=== PATIENT | female | born 1955 | race Caucasian/White ===

== ENCOUNTER 2018-03-12 06:18 | Inpatient (IN) | payer OTHER, SELFPAY ==
[2018-02-24 13:37] VITALS: BMI 39.0
[2018-03-12] VITALS (15 sets, daily range): BP systolic 94–141; BP diastolic 54–82; PULSE 55–76; RESP 10–18; TEMP 36.3–36.7; O2SAT 94–100; BMI 40.4; BMI 39.0
--- NOTE | 2018-03-12 06:00 | DI.RAD.S_ITS ---
PROCEDURE: XR KNEE RT 1TO2V INDICATIONS: prosthesis placement RIGHT KNEE TECHNIQUE: 2 view(s) of the knee acquired. [facility], [facility] KNEE ARTHRITIC SERIES RT, 02/26/2018, 15:46. [facility], [facility], XR KNEE ARTHRITIC SERIES RT, 12/26/2017, 7:10. [facility], [facility], XR KNEE ARTHRITIC SERIES RT, 09/12/2017, 7:11. FINDINGS: Bones: Patient is status post knee joint arthroplasty. Hardware components are in expected positions. Visualized bony structures are intact. Soft tissues: Overlying postoperative changes are noted. IMPRESSION: Normal postoperative alignment after right total knee arthroplasty. Dictated by: Douglas Lee M.D. on 03/12/2018 at 11:49 Approved by: Douglas Lee M.D. on 03/12/2018 at 11:49
[2018-03-12] MEDS: LACTATED RINGERS 1,000 ML 42 ML IV ×2 (06:55→13:11)
[2018-03-12] MEDS: CELECOXIB 200 MG CAPSULE PO (07:02)
[2018-03-12] MEDS: ACETAMINOPHEN 325 MG TABLET 975 MG PO ×3 (07:05→20:17)
[2018-03-12] MEDS: PREGABALIN 75 MG CAPSULE PO (07:05)
--- NOTE | 2018-03-12 07:33 | PM.PREOP ---
Pre-operative Note Interval Note Pre-op Check: Yes History & Physical Reviewed by Physician and Yes Exam Performed Changes: No
[2018-03-12] MEDS: SCOPOLAMINE 1 PATCH TOP (07:34)
[2018-03-12] MEDS: APREPITANT 40 MG CAPSULE PO (07:43)
[2018-03-12] MEDS: CEFAZOLIN 2 GM/100 ML FROZ.PIGGY IV (07:53)
--- NOTE | 2018-03-12 08:14 | P.OP_ITS ---
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 She has had progressive symptoms over the last year. X-rays in August 2017 showed loosening of her tibial component and potential loosening of the femoral component. She could not consider surgery at that time and wanted to delay treatment until now. Recent x-rays have shown mild progression of the displacement. Laboratory analysis for revealed a slightly elevated sed rate but was otherwise normal. There was no knee effusion for aspiration. The nature of the procedure including the risks and benefits, alternatives, postoperative course and expected outcome were discussed and all questions answered. Consent was obtained. Operative site confirmed and marked. Surgeon: Hipolito Simons Blow Mold Operator: Adalid Beasley Anesthesia Type: General, Spinal and Local Operative Notes Findings: There is small amount of clear yellow fluid in the knee. This was sent to the lab and had 2000 cells of which only 12% were polys. There are no other indications of infection. The tibial component was grossly loose. The femoral component was not obviously loose. Closure Type: primary Specimen(s): none sent Implants & Drains: [employer] legion revision 5 femur with 13 mm x 160 mm stem and 6 mm posterior offset and 5 mm posterior augment. Five tibia with 14 mm x 160 mm stem, 10 mm tibial wedge and 4 mm medial offset. 9 mm posterior stabilized polyethylene tray Applied: drain(s) and implant(s) Estimated Blood Loss (mL): 100 Procedure in detail: The patient was taken the operative suite and placed under general and spinal anesthesia. 1 g of vancomycin was given prior to surgery. The leg was prepped and draped in usual sterile fashion and the tourniquet raised to 300 torr. The previous anterior incision was utilized. Electrocautery was used to dissect through subcutaneous tissue. Medial patellar arthrotomy was made. Extensor mechanism was marked for repair. The knee was aspirated and about 15 cc of clear yellow fluid was obtained and sent to the lab. The results showed 2000 nucleated cells of which only 15% were polys. This was also sent for culture. Initial medial lateral exposure was performed. The tibia was obviously displaced and with a little loosening was seen to be grossly loose. The femoral component was not obviously loose. Osteotomes were used to remove both of the femoral and tibial components. These were removed with very little bone loss. The bone quality of the tibia was still quite good with excellent peripheral bone except for a small defect medially. The tibial canal was reamed in the provisional calvin placed. A tibial cut was made removing the most minimal amount of bone from the posterior aspect. This was sized for the tibial plate which needed to be medial lysed 4 mm. The proximal tibia was prepared and the provisional stem place. Attention was then turned towards the femur. Again there was very little bone loss. A guide calvin was placed in provisional Reamer use. Sequential reaming was then performed until stable. The distal femoral cut just needed to be fresh and up a couple of mm. This was cut in 6? of valgus. The knee was measured to a size 5. The 5 cutting block was placed and cuts made. A 5 mm posterior augment was needed laterally. Trial components were then placed. The patient good overall stability with a 10 mm wedge and 9 mm posterior constrained polyp. There was still some slight increased lateral compared to medial laxity. The 11 mm insert was definitely too tight. Trial components were removed. The knee was injected with the Exparel and Marcaine solution. The knee was cleansed with Pulsavac irrigation with a total of 6 L. The knee was also soaked in a dilute Betadine solution. The final components were then cemented into place with high viscosity vacuum mixed antibiotics with gentamicin. The knee was held in extension until the cement had fully cured. Trial reduction was then performed and again the 9 mm posteriorly constrained implant was selected. The final poly tray was placed. A Hemovac drain was placed deep. The extensor mechanism was then closed with interrupted 1. Vicryl sutures. Subcutaneous tissue closed with 0 Vicryl. The skin was closed with chandu. A varinder dressing was applied. The patient tolerated procedure well and was returned to recovery room in good condition. Complications: none Condition: stable Disposition: PACU Plan for aftercare: Weight bearing as tolerated. The drain will be left in for 48 hr. Will continue vancomycin until cultures are negative.
--- NOTE | 2018-03-12 08:48 | SUR.OPER ---
Supine on padded OR bed. Pillow under head, arms secured on padded armboards <90 degree abduction. Safety belt across torso. Non-operative leg secured with tape over blanket over lower leg. Operative leg secured in DeMayo/Tom positioner. Foam padded brace at thigh of operative leg.
[2018-03-12] MEDS: BUPIVACAINE 0.25% W/ EPI VIAL 50 ML INJ (09:22)
[2018-03-12] MEDS: BUPIVACAINE LIPOSOME 266 MG/20 ML VIAL INJ (09:23)
[2018-03-12] MEDS: POVIDONE-IODINE 15 ML, SODIUM CHLORIDE 0.9% 250 ML TOP (09:24)
[2018-03-12] MEDS: TRANEXAMIC ACID 1,000 MG VIAL 1000 MG INJ ×2 (09:27→09:28)
[2018-03-12 09:57] LABS: Body Fluid Appearance SLIGHTLY CLOUDY; Body Fluid Clotted? NO CLOTS PRESENT; Body Fluid Color YELLOW
[2018-03-12 09:58] LABS: Body Fluid Red Blood Cells 992 /uL; Body Fluid Tot Nucleated Cells 2168 /uL; Eosinophils Body Fluid 2 %; Mononuclear WBC Body Fluid 86 %; Other Cells Body Fluid 0 %; Polynuclear WBC Body Fluid 12 %
[2018-03-12] MEDS: ONDANSETRON 4 MG/2 ML INJ IV ×2 (11:14→17:09)
[2018-03-12] MEDS: METOCLOPRAMIDE 10 MG/2 ML INJ IV (11:36)
--- NOTE | 2018-03-12 14:01 | CM.DANOTE ---
Discharge Planning/Care Management DCP: assessment: case received, EMR reviewed and went to room to check in with pt. She is noted to still be in surgery. WB is updated. Pt is a 62 year old female who admitted early this morning for a scheduled R TKA revision. (R TKA was done here in 2016). Payer: [facility] P: will see pt during her stay to assist with d/c issues and options as these are identified. Anticipate PT will be working with pt. CM Discharge Assessment Start: 03/12/18 13:57 Freq: Status: Active Protocol: Document 03/12/18 13:58 ITV (Rec: 03/12/18 14:01 ITV [id number]) Discharge Planning Assessment Prior Living Arrangements Mobile home Household Members spouse Whiteboard Updated in Patient Room with Yes name and ext. # of Dry Drug Worker Review Status In Process Next Review Type Continued Stay Review Pre-Anesthesia Assessment Start: 02/24/18 13:37 Freq: Status: Active Protocol: Document 02/24/18 13:37 CAB (Rec: 02/24/18 14:29 CAB [id number]) Pre-Anesthesia Assessment Patient Information Reviewed Via Phone Assessment Assessment Completed With Patient Lab Results CBC EKG Electrolytes Other Comment A1c Primary Care Provider Jo Ann Aquino Seen Specialist in Last 12 Months Yes Specialist Seen Orthopedist Comment PCP note 02/18/18 to [facility] recs to be scanned to chart Primary Language Cypriot Client Specialist Required No Height 172.72 cm Weight 116.573 kg Body Mass Index (BMI) 39.0 Hearing Ability Normal Visual Assist Glasses Dentition Type Teeth, Natural Present Barriers to Learning None Other Aids No Hx Anesthesia Reactions No: *Pt requests a spinal, nausea with general* Hx Family Anesthesia Reaction No Hx Malignant Hyperthermia No Hx Blood Transfusions No Anesthesia Review Requested No Script Worker No alcohol intake current alcohol intake frequency a few times a month Smoking Status Former smoker how long ago did patient quit smoking Quit age 32's Substance Use Type does not use Pain Present Pain Reported Musculoskeletal Symptoms Abnormal Gait Difficulty Walking Joint Pain History of Falling (Recent or History of No ) Patient is completely paralyzed or No completely immobile Prosthesis or Orthotic Device Cane Comment Impaired balance, instability to knee Is patient on oxygen? No Does patient have SNOWDEN/SOB No Hx Sleep Apnea No Suspected Sleep Apnea No Currently Taking a Beta Jacquelyn No Can You Climb a Flight of Stairs Without Yes SOB Hx Chest Pain No Hx SOB No Hx Syncope or Dizziness No Anti-Coagulant Therapy No Has a Universal Worker Assisted Living No Cardiac Testing No Hx Pacemaker/ICD No Pacemaker Rep Required? No Cardiac Clearance Received Not Applicable Diet Type At Home Regular dysphagia No Bladder Pattern Frequency Nocturia Urgency Urinary Catheter Present No Hx Urinary Self Catheterization No Diabetes Yes: Diet controlled, lost 68lbs HgbA1C 5.8 Date 02/17/18 Patient No Lactating No Hx Drug Resistant Organism No Presence of External or Internal Medical Yes Devices Comment Right knee prosthesis, partial left knee Have you traveled outside the [facility] in the last 30 days? Marital Status Lives With spouse Prior Living Arrangements Mobile home Number of Floors (Floors) One Floor Number of Stairs To Enter/Railing? ramp to entry Support System Family Friend(s) Spouse Does the Patient Have Assistance After Yes Surgery Patient Discharge Plan Description Return Home Comment Pt not advised on length of stay per surgeon's office Feels Safe in Current Environment Yes Been Physically Hurt or Threatened By a No Person in Current Environment Do you have thoughts of harming yourself None or others? Are you currently considering suicide? No Do you have a plan to hurt yourself or No Plan others? Do You Have Any Spiritual Beliefs That No May Affect Your HC Choices? Do You Have Any Cultural Practices That No May Affect Your HC Choices? Spiritual Referral None Comment Debra Who Can We Speak to About Patient's Care Family, friends Identifying Code for Release of Patient Declines to issue Information Health Care Proxy/Next of Kin Smith () Health Care Proxy Emergency Contact Name Smith () Emergency Contact Advance Directives? No: Declines further information Power of Sledger No PAC Instructions Do not shave/clip surgical site Durable medical equipment Medications to take/avoid Nasal antibiotic No ETOH/petroleum product on skin DOS NPO Post-op transportation Pre-surgical wash Sensory aids Sturdy shoes/comfortable clothes Do not bring valuables and remove jewelry
--- NOTE | 2018-03-12 14:25 | PC.NURSE ---
Addendum entered by Cori Menezes R.N. 03/12/18 16:11: UNclamped Hemovac after 2 hours, 30mls out by end of shift. Original Note: Addendum entered by Cori Menezes R.N. 03/12/18 14:29: Unable to complete admission, as Pt remains drowsy, and is alone in room. Please come back, I will answer in a few min, on recheck, Pt is resting with even unlabored respirations. Will have on coming RN complete admit. Original Note: Admission Pt arrived from PACU in bed and is drowsy, c/o nausea. Has had many antiemetics in PACU. Please can I sleep a little, I feel like that might help Brief review of POC and stay in hospital, Pt agreeable. Spouse at bedside for a short stay, No c/o pain at present. Pulse ox in place, as duramorph done in OR. 2L, and + STOP band. BROWN in place and working. Hemovac compressed and clamped, unclamped per Report, at 1315. Sang. drainage noted. Ice pack in place. BA active. IVF infusing no PO intake with nausea. Ice at bedside. Lights dimmed per request.
[2018-03-12] MEDS: SODIUM CHLORIDE 0.9% 1,000 ML 100 ML IV ×2 (15:54→23:45)
--- NOTE | 2018-03-12 16:38 | PT.IIE ---
Addendum entered and electronically signed by Quiana Garland PT 03/13/18 12:18: this is to certify that i have reviewed this documentation and POC Original Note: Current Diagnoses Mechanical loosening of internal right knee prosthetic joint, subsequent encounter (03/12/18) Presence of right artificial knee joint (03/12/18) Surgery Performed Operation Date: 03/12/18 07:45 Actual Procedures p Total Knee Arthroplasty Revision(Right) - Hipolito Simons MD Surgical History (Last Updated 02/24/18 @ 14:11 by Qiana Garcia RN) History of arthroplasty of right knee (Acute) History of arthroscopy of both knees (Acute) S/P left unicompartmental knee replacement (Acute) Medical History (Last Updated 02/24/18 @ 14:28 by Qiana Garcia RN) Constipation (Acute) Dependent edema (Acute) Diabetes (Acute) Physical Therapy Inpatient Evaluation/Re-Eval M1 PT/OT-IP Prior Functional Status Start: 03/12/18 17:12 Freq: NEEDED Status: Active Protocol: Document 03/12/18 16:38 (Rec: 03/12/18 17:59 [id number]) Medical Review Prior Functional Status Medical History Reviewed Yes Communication No deficits noted. Mobility and Gait Pt was ambulating modified independent with spc for all outdoor ambulation and 90% of the time with indoor ambulation. All other mobilities were noted as independent. Social History Household Members spouse Living Arrangements Mobile home Number of Floors (Floors) One Floor Number of Stairs To Enter/Railing? Ramp with R railing. Home Environment High Toilet Walk in Shower Ramp Home Equipment Front Wheel Walker Straight Cane Bedside Commode Raised Toilet Seat Without Armrests Hand Held Shower Long Handled Sponge Material Mover Grab Bars In Shower Employment Status Presser Hand Employed Additional Social History Comment Pt can use a counter on the R side to ascend from toilet. 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 Her Smiht can be avaliable for 10/12 assist upon d/c. M2 PT-IP Current Condition Start: 03/12/18 17:12 Freq: NEEDED Status: Active Protocol: Document 03/12/18 16:38 (Rec: 03/12/18 17:59 [id number]) Physical Therapy Current Condition Current Condition Evaluation Date 03/12/18 Treatment Diagnosis L TKA; difficulty walking Onset Date 03/12/18 Weight Bearing Status Weight Bearing Status Weight Bear as Tolerated M3 PT-IP Subjective Start: 03/12/18 17:12 Freq: NEEDED Status: Active Protocol: Document 03/12/18 16:38 (Rec: 03/12/18 17:59 [id number]) Subjective Physical Therapy Visit Type Type Initial Evaluation Visit Start Time 16:38 Visit Stop Time 17:08 Total Visit Minutes 30 Number of CHAIRPERSON ANESTHESIOLOGY Visits 0 Physical Therapy Visit Comments Patient Comments Pt agreeable to mobilize with PT. Therapy Pain Assessment Pain When Pain Assessed During Mobility Pain Present Pain Present Pain Reported Location Right Knee Intensity 5 Scale Used 2-3/10 at rest; 5/10 with weight bearing. M4 PT-IP Mobility and Gait Start: 03/12/18 17:12 Freq: NEEDED Status: Active Protocol: Document 03/12/18 16:38 (Rec: 03/12/18 17:59 [id number]) PT-Bed Mobility Assessment Supine to Sit Supine to Sit Standby Assistance Sit to Supine Sit to Supine Minimal Assistance 1 Person Assistance Scooting Scooting to Edge of Bed Standby Assistance PT-Transfer Assessment Sit to and From Stand Sit to and from Stand Contact Guard Assistance Comments Mobility Comments Pt found in bed HOB elevated with 1 L O2 and 100% sat. On room air patient's O2 saturation remains 98-99% during interview. BP supine/ HOB elevated 91/38 HR 57 and patient c/o of some dizziness. HOB was lowered and BP in supine 117/52 HR 62. After resting 1-2 mins patient states dizziness is decreased and agrees to attempt sitting at EOB. Supine > Sit completed SBA with increased time and effort, but pt able to complete. Dizziness increases with sitting EOB and BP 119/60 HR 65. After resting EOB 1-2 mins. pt states dizziness is decreased and agrees to attempt standing . Sit > stand is performed with fww CGA with mod cues for scooting to EOB, hand placement, and to activate quads to avoid buckling. Pt is able to tolerate ~20 secs. of standing before c/o dizziness. Unable to obtain BP reading in standing and patient starting to look pale. Pt is instructed and assisted back to bed to recover. Stand > sit is CGA with fww and sit > supine is Milla X1 for lifting/guiding LLE (post op leg). Supine BP is 94/58 and O2 sat is 91% and nasal cannula is replaced. With 1-2 mins. resting in supine patient reports dizziness resolving again. Pt asks for pain meds. Nurse notified of pt status including orthostatic signs, oxygen sats and request for meds. PT-Balance Assessment Sitting Balance and Reactions Static Sitting Balance Ability Fair Dynamic Sitting Balance Ability Fair Standing Balance and Reactions Static Standing Balance Ability Fair Dynamic Standing Balance Ability Poor Device Used fww M5 PT-IP Objective Assessments Start: 03/12/18 17:12 Freq: NEEDED Status: Active Protocol: Document 03/12/18 16:38 (Rec: 03/12/18 17:59 [id number]) Orientation Orientation/Cognition Level of Alertness Alert Orientation Name Birthday Place Situation Language Function Ability No Deficits Noted Safety Awareness Decreased Safety Awareness Gross Range of Motion Lower Extremity ROM Assessment Left Impaired Impairments L knee flexion ~30 Strength Lower Extremity Strength Assessment Left Impaired Comments Strength Comments LLE grossly 3+/5. RLE WNL Sensation Assessment Sensation Gross Sensation WNL Light Touch Intact M6 PT-IP Treatment Start: 03/12/18 17:12 Freq: NEEDED Status: Active Protocol: Document 03/12/18 16:38 (Rec: 03/12/18 17:59 [id number]) Physical Therapy Treatment Education Education Provided Precautions Weight Bearing Status Post-Op Packet Safety M7 PT-IP Assessment and Plan Start: 03/12/18 17:12 Freq: NEEDED Status: Active Protocol: Document 03/12/18 16:38 (Rec: 03/12/18 17:59 [id number]) PT Summary Assessment and Plan Potential Rehabilitation Potential Good Status of Condition at Evaluation Evolving Summary Impairments Pain ROM Strength Balance Coordination Bed Mobility Transfers Gait Activity Tolerance Progress Towards Goals Progressing Toward Goals Assessment Summary Pt s/p L TKA with difficulty walking. She was only able to stand at EOB CGA with fww this session. She demonstrated signs of medical instability including orthostatic hypotension, as well as c/o nausea/dizziness. Ambulation assessment still needs completion. Recommendation for discharge at this time is anticipated to be home with 24/7 assist and f/u in OP PT when pt is medically stable. Goals Bed Mobility Goal Independent Transfer Goal Independent Front Wheeled Walker Gait Goal Standby Assistance Front Wheel Walker Gait Distance 150 Days to Meet Goals 3 Frequency of Treatment Frequency Of Treatment Twice a Day Treatment Plan Physical Therapy Treatment Plan Bed Mobility Training Transfer Training Gait Training Therapeutic Exercise Balance Retraining Post Op Education Discharge Planning Hot or Cold Pack Neuromuscular Re-ed Coordination Retraining Manual Therapy Other Recommendations and Next Treatment Monitor orthostatics and Focus assess ambulation if appropriate. Recommendations To Nursing Amount of Assist Needed 1 Person Assist Discharge Recommendations PT Discharge Recommendations Home with 10/12 Assist Outpatient PT
[2018-03-12] MEDS: OXYCODONE IR 5 MG TABLET PO ×3 (17:13→23:49)
[2018-03-13] VITALS (10 sets, daily range): BP systolic 93–136; BP diastolic 47–73; PULSE 58–75; RESP 15–16; TEMP 36.5–38.7; O2SAT 94–98
[2018-03-13] MEDS: OXYCODONE IR 10 MG TABLET PO ×4 (03:05→21:40)
[2018-03-13] MEDS: diphenhydrAMINE 50 MG/ML VIAL 25 MG IV (03:14)
--- NOTE | 2018-03-13 05:37 | PC.NURSE ---
03/13 0538; pt alert and oriented, utilizing prn pain medications every 3 hours upon availability. Hemovac present, unkinked and compressed. BROWN drain with solid green light for functioning. Bilateral lower extremities with edema. CMS intact with brisk cap refill. Blanton draining to gravity. BP running low at beginning of shift but improved my mid/late shift vitals.
[2018-03-13 05:52] LABS: Hematocrit 30.5 % (36-46); Hemoglobin 10.4 g/dL (12.0-16.0); Mean Corpuscular Hemoglobin 29.2 PG (26-34); Mean Corpuscular Volume 85.8 fL (80-100); Platelet Count 178 X10^3/uL (150-400); Red Blood Cell Count 3.55 X10^6/uL (4.0-5.2)
[2018-03-13] MEDS: OXYCODONE IR 5 MG TABLET PO ×2 (06:17→09:02)
[2018-03-13] MEDS: ACETAMINOPHEN 325 MG TABLET 975 MG PO ×3 (06:18→21:39)
--- NOTE | 2018-03-13 08:33 | PM.PN.1 ---
Exam Vital Signs (past 8 hours): - 03/13/18 06:06 Temperature 98.2 F Pulse Rate 74 Respiratory Rate 16 Blood Pressure 121/56 L Pulse Oximetry 98 Oxygen Delivery Method Room Air Oxygen Flow Rate 0 Objective Labs Result Diagrams: 03/13/18 05:31 Labs: Laboratory Results - last 24 hr 03/12/18 03/13/18 08:37 05:31 WBC 9.0 RBC 3.55 L Hgb 10.4 L Hct 30.5 L MCV 85.8 MCH 29.2 MCHC 34.0 RDW 13.0 Plt Count 178 Fluid Color Yellow Fluid Appearance Slightly cloudy Fluid RBC 992 Fld Tot Nucleated Cell 2168 Fluid Polynuclear WBCs 12 Fluid Mononuclear WBCs 86 Fluid Eosinophils 2 Body Fluid Clot No clots present Assessment & Plan Plan: Assessment/Plan Narrative: Patient seen this morning. She complains of more discomfort as compared to her last knee surgery. However, she states she has less swelling overall and is pleased about that. No evidence of anesthesia complications are noted. Time Spent With Patient Time with patient: less than 15 minutes (Less than 5 minutes.) Quality VTE Deep Vein Thrombosis/Pulmonary Embolism Present on Admission: No
[2018-03-13] MEDS: NAPROXEN 250 MG TABLET 500 MG PO ×2 (09:03→21:40)
--- NOTE | 2018-03-13 11:33 | PT.IPTN ---
Current Diagnoses Mechanical loosening of internal right knee prosthetic joint, subsequent encounter (03/12/18) Presence of right artificial knee joint (03/12/18) Surgery Performed Operation Date: 03/12/18 07:45 Actual Procedures p Total Knee Arthroplasty Revision(Right) - Hipolito Simons MD Physical Therapy Treatment Note M2 PT-IP Current Condition Start: 03/12/18 17:12 Freq: NEEDED Status: Active Protocol: Document 03/12/18 16:38 (Rec: 03/12/18 17:59 [id number]) Physical Therapy Current Condition Current Condition Evaluation Date 03/12/18 Treatment Diagnosis L TKA; difficulty walking Onset Date 03/12/18 Weight Bearing Status Weight Bearing Status Weight Bear as Tolerated M3 PT-IP Subjective Start: 03/12/18 17:12 Freq: NEEDED Status: Active Protocol: Document 03/13/18 11:21 SA (Rec: 03/13/18 11:33 SA [id number]) Subjective Physical Therapy Visit Type Type Treatment Note Visit Start Time 10:15 Visit Stop Time 10:42 Total Visit Minutes 27 Number of HEALTHCARE NETWORK CONSULTANT Visits 1 Physical Therapy Visit Comments Patient Comments Pt in bed and agreeable to PT, present for session, received pain meds about 1 hour prior to PT. Therapy Pain Assessment Pain When Pain Assessed During Mobility Pain Present Pain Present Pain Reported Location Right Knee Intensity 6 Scale Used Numeric (1 - 10) M4 PT-IP Mobility and Gait Start: 03/12/18 17:12 Freq: NEEDED Status: Active Protocol: Document 03/13/18 11:21 SA (Rec: 03/13/18 11:33 SA [id number]) PT-Bed Mobility Assessment Rolling Type of Rolling Roll to Right Level of Assist Contact Guard Assistance Supine to Sit Supine to Sit Standby Assistance Sit to Supine Sit to Supine Contact Guard Assistance 1 Person Assistance Bedrails Scooting Scooting to Edge of Bed Standby Assistance PT-Transfer Assessment Sit to and From Stand Sit to and from Stand Contact Guard Assistance Equipment Transfer Assistive Device Gait Belt Front Wheeled Walker Orthotic/Prosthetic Devices or Brace: No Transfers Transfer Destination Bed Transfer Technique Stand Step Pivot Transfer Ability Level of Assist Contact Guard Assistance Comments Mobility Comments BP in supine 105/61 and seated at EOB 131/79. 02 98% on RA and HR 71 BPM. Pt had no c/o dizziness but states she feels unsteady with initial standing. Stood for 1 -2 min 2x with good tolerance. Gait Assessment Gait Gait Assistance Required: Contact Guard Assist Distance (Feet) 3 Able to Maintain Weight Bearing Status Yes During Gait Assistive Devices Assistive Device Gait Belt Front Wheeled Walker Gait Deviations General Gait Pattern Decreased Stride Length Decreased Feet Clearance Comments Gait Comments PT tood 3 steps forward/ backwards at EOB and lateral stepping to R side at EOB. Tolerated well but very gaurded. M5 PT-IP Objective Assessments Start: 03/12/18 17:12 Freq: NEEDED Status: Active Protocol: Document 03/12/18 16:38 (Rec: 03/12/18 17:59 [id number]) Orientation Orientation/Cognition Level of Alertness Alert Orientation Name Birthday Place Situation Language Function Ability No Deficits Noted Safety Awareness Decreased Safety Awareness Gross Range of Motion Lower Extremity ROM Assessment Left Impaired Impairments L knee flexion ~30 Strength Lower Extremity Strength Assessment Left Impaired Comments Strength Comments LLE grossly 3+/5. RLE WNL Sensation Assessment Sensation Gross Sensation WNL Light Touch Intact M6 PT-IP Treatment Start: 03/12/18 17:12 Freq: NEEDED Status: Active Protocol: Document 03/13/18 11:21 SA (Rec: 03/13/18 11:33 [id number]) Physical Therapy Treatment Education Education Provided Precautions Weight Bearing Status Post-Op Packet Safety M7 PT-IP Assessment and Plan Start: 03/12/18 17:12 Freq: NEEDED Status: Active Protocol: Document 03/13/18 11:21 SA (Rec: 03/13/18 11:33 [id number]) PT Summary Assessment and Plan Potential Rehabilitation Potential Good Status of Condition at Evaluation Evolving Frequency of Treatment Frequency Of Treatment Twice a Day Recommendations To Nursing Amount of Assist Needed 1 Person Assist Discharge Recommendations PT Discharge Recommendations Home with 10/12 Assist Outpatient PT
--- NOTE | 2018-03-13 13:15 | PM.PNPO.1 ---
Subjective Date Patient Seen: 03/13/18 Time Patient Seen: 13:15 Interval history: Pt is S/P RT total knee revision by Dr. Simons. PD 1. Having some muscle spasms in thigh area. Has been up with PT and is ambulating. Blanton was removed earlier today. Hemovac drain in. Denies nausea or shortness of breath. Exam Vital Signs (past 8 hours): - 03/13/18 06:06 03/13/18 08:00 03/13/18 12:00 Temperature 98.2 F 99.9 F H 100.4 F H Pulse Rate 74 66 70 Respiratory Rate 16 16 16 Blood Pressure 121/56 L 93/47 L 116/60 Pulse Oximetry 98 96 94 03/13/18 12:33 Temperature 100.4 F H Pulse Rate Respiratory Rate Blood Pressure Pulse Oximetry Oxygen Delivery Method Room Air Oxygen Flow Rate 0 Narrative Exam Narrative: Pt in bed. A&O X3. Right knee dressing (BROWN) CDI. Mod swelling in right knee. Hemovac drain in with drainage. Aung calves soft and nontender. NV status intact. 5/5 rt ankle strength. Objective Labs Result Diagrams: 03/13/18 05:31 Labs: Laboratory Results - last 24 hr 03/13/18 05:31 WBC 9.0 RBC 3.55 L Hgb 10.4 L Hct 30.5 L MCV 85.8 MCH 29.2 MCHC 34.0 RDW 13.0 Plt Count 178 Assessment & Plan Post-op Postoperative Procedures Operation Date: 03/12/18 07:45 Actual Procedures Side Surgeon p Total Knee Arthroplasty Revision Right Hipolito Simons MD PD 1. Vistrail ordered for muscle spasms. Continue PT. D/C hemovac when less than 50cc. Continue DVT prophylaxis. Anticipate d/c home in next day or two. Quality VTE Deep Vein Thrombosis/Pulmonary Embolism Present on Admission: No
--- NOTE | 2018-03-13 14:30 | PC.NURSE ---
Am shift Pt has been up ambulating short disances with staff, Blanton removed, IV SL. Pain controlled this AM with Oxycodone, will add Vistaril for better coverage. Hemovac and BROWN remain in place. Call light in reach.
--- NOTE | 2018-03-13 14:55 | PT.IPTN ---
Current Diagnoses Mechanical loosening of internal right knee prosthetic joint, subsequent encounter (03/12/18) Presence of right artificial knee joint (03/12/18) Surgery Performed Operation Date: 03/12/18 07:45 Actual Procedures p Total Knee Arthroplasty Revision(Right) - Hipolito Simons MD Physical Therapy Treatment Note M2 PT-IP Current Condition Start: 03/12/18 17:12 Freq: NEEDED Status: Active Protocol: Document 03/12/18 16:38 (Rec: 03/12/18 17:59 [id number]) Physical Therapy Current Condition Current Condition Evaluation Date 03/12/18 Treatment Diagnosis L TKA; difficulty walking Onset Date 03/12/18 Weight Bearing Status Weight Bearing Status Weight Bear as Tolerated M3 PT-IP Subjective Start: 03/12/18 17:12 Freq: NEEDED Status: Active Protocol: Document 03/13/18 14:48 SA (Rec: 03/13/18 14:55 SA [id number]) Subjective Physical Therapy Visit Type Type Treatment Note Visit Start Time 14:12 Visit Stop Time 14:30 Total Visit Minutes 18 Number of ACADEMIC SUCCESS COORDINATOR Visits 2 Physical Therapy Visit Comments Patient Comments Pt in bed but agreeable to Pt this afternoon. Therapy Pain Assessment Pain When Pain Assessed During Mobility Pain Present Pain Present Pain Reported Location Right Knee Intensity 5 Scale Used Numeric (1 - 10) Pain Management Techniques Apply Cold Timing of Activity with Medications M4 PT-IP Mobility and Gait Start: 03/12/18 17:12 Freq: NEEDED Status: Active Protocol: Document 03/13/18 14:48 SA (Rec: 03/13/18 14:55 SA [id number]) PT-Bed Mobility Assessment Rolling Type of Rolling Roll to Right Level of Assist Contact Guard Assistance Supine to Sit Supine to Sit Standby Assistance Sit to Supine Sit to Supine Contact Guard Assistance 1 Person Assistance Bedrails Scooting Scooting to Edge of Bed Standby Assistance PT-Transfer Assessment Sit to and From Stand Sit to and from Stand Contact Guard Assistance Equipment Transfer Assistive Device Gait Belt Front Wheeled Walker Orthotic/Prosthetic Devices or Brace: No Transfers Transfer Destination Bed Bedside Commode Transfer Technique Stand Step Pivot Transfer Ability Level of Assist Contact Guard Assistance Comments Mobility Comments BP seated at EOB 139/79. Completed stand pivot txs BED< >BSC with FWW and CGA. Gait Assessment Gait Gait Assistance Required: Contact Guard Assist Distance (Feet) 3 Assistive Devices Assistive Device Gait Belt Front Wheeled Walker Gait Deviations General Gait Pattern Decreased Stride Length Decreased Feet Clearance Comments Gait Comments Lateral stepping at EOB and 3- 4 steps to/from BSC. Pt still limits WBing through RLE. M5 PT-IP Objective Assessments Start: 03/12/18 17:12 Freq: NEEDED Status: Active Protocol: Document 03/12/18 16:38 (Rec: 03/12/18 17:59 [id number]) Orientation Orientation/Cognition Level of Alertness Alert Orientation Name Birthday Place Situation Language Function Ability No Deficits Noted Safety Awareness Decreased Safety Awareness Gross Range of Motion Lower Extremity ROM Assessment Left Impaired Impairments L knee flexion ~30 Strength Lower Extremity Strength Assessment Left Impaired Comments Strength Comments LLE grossly 3+/5. RLE WNL Sensation Assessment Sensation Gross Sensation WNL Light Touch Intact M6 PT-IP Treatment Start: 03/12/18 17:12 Freq: NEEDED Status: Active Protocol: Document 03/13/18 14:48 SA (Rec: 03/13/18 14:55 [id number]) Physical Therapy Treatment Education Education Provided Precautions Weight Bearing Status Post-Op Packet Safety Other Treatments Other Treatment Performed Supine ankle pumps and seated EOB knee flexion/extension. M7 PT-IP Assessment and Plan Start: 03/12/18 17:12 Freq: NEEDED Status: Active Protocol: Document 03/13/18 14:48 SA (Rec: 03/13/18 14:55 [id number]) PT Summary Assessment and Plan Potential Rehabilitation Potential Good Status of Condition at Evaluation Evolving Frequency of Treatment Frequency Of Treatment Twice a Day Recommendations To Nursing Amount of Assist Needed 1 Person Assist Discharge Recommendations PT Discharge Recommendations Home with 10/12 Assist Outpatient PT
[2018-03-13] MEDS: hydrOXYzine pamoate 25 MG CAPSULE 50 MG PO (15:02)
[2018-03-14] MEDS: OXYCODONE IR 10 MG TABLET PO ×6 (01:03→18:25)
[2018-03-14 04:05] VITALS: BP 121/63; PULSE 68; RESP 17; TEMP 37.2; O2SAT 93
--- NOTE | 2018-03-14 06:23 | PC.NURSE ---
03/14 0623; No significant changes this shift, VSS on RA, pain stated to be better controlled with q3hr administration of 10mg Oxycodone. Was up to bathroom with 1 person minimum assist with getting leg back in bed. Right leg with some swelling, pulses easily palpable, good cap refill and sensation stated to be intact. Hemovac and BROWN drain present.
--- NOTE | 2018-03-14 06:57 | PC.NURSE ---
Hemovac drain discontinue 0655, tolerated well.
--- NOTE | 2018-03-14 07:47 | PM.PNPO.1 ---
Subjective Date Patient Seen: 03/14/18 Time Patient Seen: 07:48 Interval history: Patient's pain is [id number]. Denies fever chills. No nausea vomiting. Patient has been able to walk in the room with assistance. She does note weakness trying to get in and out of bed. Her 's home to assist her however has a bad back. Exam Vital Signs (past 8 hours): - 03/14/18 04:05 Temperature 98.9 F Pulse Rate 68 Respiratory Rate 17 Blood Pressure 121/63 Pulse Oximetry 93 Fraction of Inspired Oxygen 21 Oxygen Delivery Method Room Air Oxygen Flow Rate 0 Narrative Exam Narrative: Pleasant 62-year-old female resting comfortably in bed in no apparent distress. Gordy dressing is clean, dry and intact. Motor functions intact distal right lower extremity. Sensation grossly intact to light touch. Objective Labs Result Diagrams: 03/13/18 05:31 Assessment & Plan Post-op Postoperative Procedures Operation Date: 03/12/18 07:45 Actual Procedures Side Surgeon p Total Knee Arthroplasty Revision Right Hipolito Simons MD Postop day 2. Patient is status post revision right total knee arthroplasty. Mobilize with physical therapy. Weight-bearing as tolerated. Continue antibiotics until cultures are negative. Preliminary aerobic culture shows no growth, and anaerobic culture pending Likely discharge home tomorrow. Quality VTE Deep Vein Thrombosis/Pulmonary Embolism Present on Admission: No
[2018-03-14 09:00] VITALS: BP 119/62; PULSE 76; RESP 18; TEMP 37.4; O2SAT 99
[2018-03-14] MEDS: NAPROXEN 250 MG TABLET 500 MG PO ×2 (09:49→20:56)
[2018-03-14] MEDS: ACETAMINOPHEN 325 MG TABLET 975 MG PO ×3 (09:49→20:56)
[2018-03-14] MEDS: ASPIRIN EC 81 MG TABLET PO ×2 (09:50→20:56)
[2018-03-14] MEDS: SODIUM CHLORIDE 0.9% FLUSH 10 ML IV ×2 (09:50→20:56)
--- NOTE | 2018-03-14 10:47 | PT.IPTN ---
Current Diagnoses Mechanical loosening of internal right knee prosthetic joint, subsequent encounter (03/12/18) Presence of right artificial knee joint (03/12/18) Surgery Performed Operation Date: 03/12/18 07:45 Actual Procedures p Total Knee Arthroplasty Revision(Right) - Hipolito Simons MD Physical Therapy Treatment Note M2 PT-IP Current Condition Start: 03/12/18 17:12 Freq: NEEDED Status: Active Protocol: Document 03/12/18 16:38 (Rec: 03/12/18 17:59 [id number]) Physical Therapy Current Condition Current Condition Evaluation Date 03/12/18 Treatment Diagnosis L TKA; difficulty walking Onset Date 03/12/18 Weight Bearing Status Weight Bearing Status Weight Bear as Tolerated M3 PT-IP Subjective Start: 03/12/18 17:12 Freq: NEEDED Status: Active Protocol: Document 03/14/18 10:45 GGD (Rec: 03/14/18 11:47 GGD [id number]) Subjective Physical Therapy Visit Type Type Treatment Note Visit Start Time 10:20 Visit Stop Time 10:45 Total Visit Minutes 25 Number of STEREOTYPER APPRENTICE Visits 3 Physical Therapy Visit Comments Patient Comments Pt states she still having trouble getting in and out of bed. Therapy Pain Assessment Pain When Pain Assessed At Rest Pain Present Pain Present Denied Pain M4 PT-IP Mobility and Gait Start: 03/12/18 17:12 Freq: NEEDED Status: Active Protocol: Document 03/14/18 10:45 GGD (Rec: 03/14/18 11:47 GGD [id number]) PT-Bed Mobility Assessment Supine to Sit Supine to Sit Standby Assistance Sit to Supine Sit to Supine Contact Guard Assistance 1 Person Assistance Scooting Scooting to Edge of Bed Standby Assistance PT-Transfer Assessment Sit to and From Stand Sit to and from Stand Contact Guard Assistance Equipment Transfer Assistive Device Gait Belt Front Wheeled Walker Orthotic/Prosthetic Devices or Brace: No Transfers Transfer Destination Bed Chair Toilet Transfer Ability Level of Assist Contact Guard Assistance Gait Assessment Gait Gait Assistance Required: Contact Guard Assist Distance (Feet) 25 Assistive Devices Assistive Device Gait Belt Front Wheeled Walker Gait Deviations General Gait Pattern Decreased Stride Length Decreased Feet Clearance Factors Limiting Gait Function Factors Limiting Gait Function Decreased Activity Tolerance Decreased Strength Limited Range of Motion Pain M5 PT-IP Objective Assessments Start: 03/12/18 17:12 Freq: NEEDED Status: Active Protocol: Document 03/12/18 16:38 (Rec: 03/12/18 17:59 [id number]) Orientation Orientation/Cognition Level of Alertness Alert Orientation Name Birthday Place Situation Language Function Ability No Deficits Noted Safety Awareness Decreased Safety Awareness Gross Range of Motion Lower Extremity ROM Assessment Left Impaired Impairments L knee flexion ~30 Strength Lower Extremity Strength Assessment Left Impaired Comments Strength Comments LLE grossly 3+/5. RLE WNL Sensation Assessment Sensation Gross Sensation WNL Light Touch Intact M6 PT-IP Treatment Start: 03/12/18 17:12 Freq: NEEDED Status: Active Protocol: Document 03/14/18 10:45 GGD (Rec: 03/14/18 11:47 GGD [id number]) Physical Therapy Treatment Exercises Exercises Ankle Pumps Gluteal Sets Quad Sets Seated Knee Flexion/Extension M7 PT-IP Assessment and Plan Start: 03/12/18 17:12 Freq: NEEDED Status: Active Protocol: Document 03/14/18 10:45 GGD (Rec: 03/14/18 11:47 GGD [id number]) PT Summary Assessment and Plan Summary Assessment Summary Pt improving with mobility. She was able to progress her gait distance. She needed cues for heel down with gait. She had heavy use of UE on FWW with gait. She need cues and CGA for sit to supine bed mobility. Frequency of Treatment Frequency Of Treatment Twice a Day Recommendations To Nursing Amount of Assist Needed 1 Person Assist Discharge Recommendations PT Discharge Recommendations Home with 10/12 Assist Outpatient PT
[2018-03-14 15:30] VITALS: BP 117/78; PULSE 70; RESP 19; TEMP 36.9; O2SAT 98
--- NOTE | 2018-03-14 16:41 | CM.DPC ---
Addendum entered by SILVESTRE Johnson 03/16/18 12:54: TC received from Kiki gonzalez/ Alfonso, requesting DC date and dispo. CB and had to LM w/this information: Home 10. w/spouse. Original Note: DCP: continued: Case reviewed in Team Rounds today. PT reports pt doing well toward her plan for d/c to home with spouse prn support. Follow prn. P: home when stable for same.
--- NOTE | 2018-03-14 16:44 | PT.IPTN ---
Current Diagnoses Mechanical loosening of internal right knee prosthetic joint, subsequent encounter (03/12/18) Presence of right artificial knee joint (03/12/18) Surgery Performed Operation Date: 03/12/18 07:45 Actual Procedures p Total Knee Arthroplasty Revision(Right) - Hipolito Simons MD Physical Therapy Treatment Note M2 PT-IP Current Condition Start: 03/12/18 17:12 Freq: NEEDED Status: Active Protocol: Document 03/12/18 16:38 (Rec: 03/12/18 17:59 [id number]) Physical Therapy Current Condition Current Condition Evaluation Date 03/12/18 Treatment Diagnosis L TKA; difficulty walking Onset Date 03/12/18 Weight Bearing Status Weight Bearing Status Weight Bear as Tolerated M3 PT-IP Subjective Start: 03/12/18 17:12 Freq: NEEDED Status: Active Protocol: Document 03/14/18 15:52 LJ (Rec: 03/14/18 16:44 LJ [id number]) Subjective Physical Therapy Visit Type Type Treatment Note Visit Start Time 15:52 Visit Stop Time 16:20 Total Visit Minutes 28 Number of INSPECTION MANAGER Visits 4 Physical Therapy Visit Comments Patient Comments Pt seated in chair waiting to walk. Therapy Pain Assessment Pain When Pain Assessed During Weight Bearing Pain Present Pain Present Denied Pain M4 PT-IP Mobility and Gait Start: 03/12/18 17:12 Freq: NEEDED Status: Active Protocol: Document 03/14/18 15:52 LJ (Rec: 03/14/18 16:44 LJ [id number]) PT-Bed Mobility Assessment Sit to Supine Sit to Supine Standby Assistance Scooting Scooting to Edge of Bed Standby Assistance PT-Transfer Assessment Sit to and From Stand Sit to and from Stand Standby Assistance Equipment Transfer Assistive Device Gait Belt Front Wheeled Walker Transfers Transfer Destination Bed Transfer Ability Level of Assist Standby Assistance Comments Mobility Comments Pt SBA for all bed mobility and transfers. Uses RLE to assist LLE into bed. Able to position self in bed. Gait Assessment Gait Gait Assistance Required: Contact Guard Assist Distance (Feet) 90 Assistive Devices Assistive Device Gait Belt Front Wheeled Walker Gait Deviations General Gait Pattern Decreased Stride Length Decreased Feet Clearance Factors Limiting Gait Function Factors Limiting Gait Function Decreased Activity Tolerance Decreased Strength Limited Range of Motion Pain Comments Gait Comments Pt able to ambulate in hallway 90' with cueing for body positioning w/in FWW and increasing foot clearance and heel strike. M5 PT-IP Objective Assessments Start: 03/12/18 17:12 Freq: NEEDED Status: Active Protocol: Document 03/12/18 16:38 (Rec: 03/12/18 17:59 [id number]) Orientation Orientation/Cognition Level of Alertness Alert Orientation Name Birthday Place Situation Language Function Ability No Deficits Noted Safety Awareness Decreased Safety Awareness Gross Range of Motion Lower Extremity ROM Assessment Left Impaired Impairments L knee flexion ~30 Strength Lower Extremity Strength Assessment Left Impaired Comments Strength Comments LLE grossly 3+/5. RLE WNL Sensation Assessment Sensation Gross Sensation WNL Light Touch Intact M6 PT-IP Treatment Start: 03/12/18 17:12 Freq: NEEDED Status: Active Protocol: Document 03/14/18 15:52 LJ (Rec: 03/14/18 16:44 LJ [id number]) Physical Therapy Treatment Exercises Exercises Gluteal Sets Quad Sets Seated Knee Flexion/Extension Education Education Provided Safety Other Treatments Other Treatment Performed Left pt with ice pack on LLE M7 PT-IP Assessment and Plan Start: 03/12/18 17:12 Freq: NEEDED Status: Active Protocol: Document 03/14/18 15:52 MARCY (Rec: 03/14/18 16:44 [id number]) PT Summary Assessment and Plan Summary Assessment Summary Pt able to perform all bed mobility and transfers with SBA. Improved gait posture and foot clearance with min cueing. Pt increased gait distance significantly with 2 very short standing rest breaks. Frequency of Treatment Frequency Of Treatment Twice a Day Recommendations To Nursing Amount of Assist Needed 1 Person Assist Discharge Recommendations PT Discharge Recommendations Home with 10/12 Assist Outpatient PT
[2018-03-14 19:50] VITALS: BP 124/71; PULSE 68; RESP 18; TEMP 37.2; O2SAT 96
[2018-03-14 23:35] VITALS: BP 115/67; PULSE 67; RESP 20; TEMP 36.6; O2SAT 96
[2018-03-15] MEDS: OXYCODONE IR 10 MG TABLET PO ×2 (04:56→08:53)
[2018-03-15 05:06] VITALS: BP 128/75; PULSE 78; RESP 20; TEMP 36.7; O2SAT 95
[2018-03-15 07:51] VITALS: BP 111/56; PULSE 62; RESP 16; TEMP 36.9; O2SAT 99
[2018-03-15] MEDS: ACETAMINOPHEN 325 MG TABLET 975 MG PO (08:52)
[2018-03-15] MEDS: hydrOXYzine pamoate 25 MG CAPSULE 50 MG PO (08:52)
[2018-03-15] MEDS: NAPROXEN 250 MG TABLET 500 MG PO (08:53)
[2018-03-15] MEDS: ASPIRIN EC 81 MG TABLET PO (08:53)
--- NOTE | 2018-03-15 09:33 | PM.DS.1 ---
History of Present Illness Date Patient Seen: 03/15/18 Time Patient Seen: 09:33 Chief complaint: 13670 RIGHT TOTAL KNEE REVISION Narrative: Patient is 62-year-old female with a failed right total knee arthroplasty she elected to proceed with the right total knee revision arthroplasty by Dr. Simons at [facility]. 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 Simons. She recovered well and was transferred to the floor for further care. First postop days she she was slow to ambulate. By postop day 3 patient was ambulating well. Pain was under control. Eating and drinking well and urinating without difficulty. She was ready to be discharged home. She has her follow-up visit already scheduled and along with postop physical therapy. Status at Discharge Cognitive/behavioral status at discharge: Alert and orient x3 Functional status at discharge: uses cane/walker Overall status at discharge: patient is progressing back to baseline Time Spent with Patient Less than 30 minutes Exam Vital Signs (past 8 hours): - 03/15/18 05:06 03/15/18 07:51 Temperature 98.1 F 98.5 F Pulse Rate 78 62 Respiratory Rate 20 16 Blood Pressure 128/75 111/56 L Pulse Oximetry 95 99 Fraction of Inspired Oxygen 21 Oxygen Delivery Method Room Air Oxygen Flow Rate 0 Narrative Exam Narrative: patient up with a walker, About to get a shower. Right knee varinder dressing clean dry and intact. Some swelling in right knee and right lower leg. Bilateral calf soft and nontender. Patient appears comfortable. Alert and orient x3. Objective Labs Result Diagrams: 03/13/18 05:31 Discharge Plan Discharge Plan Patient Disposition: Home Discharge comment: Start physical therapy next week. Continue home exercises. Take aspirin 81 mg twice a day time 6 weeks for DVT prophylaxis. Discharge Med Rec/Prescriptions Prescriptions: New acetaminophen 325 mg Tablet 975 mg PO TID Qty: 0 RF: 0 aspirin 81 mg Tablet,Delayed Release (Dr/Ec) 81 mg PO BID PRN (Reason: DVT prophylaxis) Qty: 0 RF: 0 hydroxyzine pamoate 25 mg Capsule 50 mg PO Q6HR PRN (Reason: Muscle Spasm) Qty: 0 RF: 0 oxycodone 10 mg Tablet 10 mg PO Q4H PRN (Reason: Pain, Severe (7-10)) Qty: 0 RF: 0 Continue chlorthalidone 25 MG tablet 25 mg PO QDAY Qty: 30 RF: 0 potassium gluconate 99 MG tablet 10 meq PO QDAY Qty: 0 RF: 0 etodolac 500 mg Tablet 400 mg PO BID Qty: 60 RF: 0 Discontinued Acetaminophen Extra Strength 1,000 mg PO QAM RF: 0 Follow up/Referrals: Hipolito Simons MD [Physician] - ( follow-up as scheduled date and time. Contact office with any issues or concerns.) Provider Discharge Instructions Diet: Diet as Tolerated Activity: Weightbearing as tolerated. Ambulate with assistance of a walker/cane. Cold/Heat Therapy: Apply ice to the extremity as needed for Swelling and inflammation. Skin/Wound/Dressing Care Report to your healthcare provider any signs of infection, such as:: chills, fever, increased pain and unusual drainage Dressing: Keep dressing on. May shower. Discharge Data Primary Care Provider: Jo Ann Aquino Attending Provider: Hipolito Simons Admit Date/Time: 03/12/18 06:18 Quality VTE Deep Vein Thrombosis/Pulmonary Embolism Present on Admission: No
== END 2018-03-15 11:15 | disposition home or self-care (01) | DRG 467 ==
PROVIDERS: Admitting Provider Orthopaedic Surgery; PCP Family Medicine; Visit Provider Orthopaedic Surgery
PROC: 0SPC0JZ Removal of Synthetic Substitute from Right Knee Joint, Open Approach (ICD-10-PCS; principal; 2018-03-12 07:45)
DX: T84.032A Mechanical loosening of internal right knee prosthetic joint, initial encounter (principal); Z68.41 Body mass index [BMI] 40.0-44.9, adult; E66.9 Obesity, unspecified; E11.9 Type 2 diabetes mellitus without complications
CPT/HCPCS: 36415; 73560; 82962; 85027; 87070; 87075; 87205; 89051; 94760; 97110; 97116; 97162; 97530; C1776; C9290; J0690; J1200; J2250; J2274; J2405; J2704; J2765; J3010; J8501